=== PATIENT | female | born 1965 | race African-American/Black ===

== ENCOUNTER 2025-05-25 11:25 | Emergency (ER) | payer BC, SELFPAY ==
[2025-05-25 11:32] VITALS: BP 125/93; PULSE 80; RESP 16; TEMP 36.3; O2SAT 100
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
[2025-05-25 11:53] LABS: EDUAAPPEAR Clear; EDUABILI Negative (Negative); EDUABLOOD Trace (Negative); EDUACOLOR1 Yellow; EDUAGLUCOSE Negative (Negative); EDUAKETONE Trace (Negative); EDUALEUKO Negative (Negative); EDUANITRATE Negative (Negative); EDUAPH 5.5; EDUAPROTEIN Negative (Negative); EDUASPGRAVITY 1.030; EDUAUROBILI 0.2
== END 2025-05-25 11:55 | disposition home or self-care (01) ==
PROVIDERS: Emergency Provider Nurse Practitioner
DX: M54.50 Low back pain, unspecified (principal); Z21 Asymptomatic human immunodeficiency virus [HIV] infection status
CPT/HCPCS: 81003; 99213; G0463